=== PATIENT | female | born 1970 | race Caucasian/White ===

== ENCOUNTER 2023-11-08 18:24 | Observation (INO) ==
[2023-11-08] MEDS ORDERED: IOPAMIDOL 100 ML BOTTLE IV ONE (18:25)
[2023-11-08] MEDS: KETOROLAC 30 MG/ML VIAL IV ONE (20:08)
[2023-11-08] MEDS: DIAZEPAM 10 MG/2 ML SYRINGE IV ONE (20:08)
[2023-11-08] MEDS: 0.9 % SODIUM CHLORIDE 1,000 ML IV ONE (20:09)
[2023-11-08 20:35] LABS: ALT/SGPT 35 U/L (<40); AST/SGOT 109 U/L (<32); Albumin 4.1 gm/dL (3.2-5.2); Albumin/Globulin Ratio 1.4 (1.0-2.3); Alkaline Phosphatase 449 U/L (39-117); Bilirubin,Total 0.6 mg/dL (0.1-1.0); Blood Urea Nitrogen 22 mg/dL (6-20); Calcium 10.2 mg/dL (8.6-10.4); Carbon Dioxide 25 mmol/L (22-30); Chloride 103 mmol/L (96-108); Glomerular Filtration Rate 56; Glucose 116 mg/dL (70-105)
[2023-11-08 20:58] LABS: Basophils # (Auto) 0.07 K/mcL (0.00-0.30); Basophils % (Auto) 0.5 % (0.0-2.0); Eosinophils # (Auto) 0.29 K/mcL (0.00-0.70); Eosinophils % (Auto) 1.9 % (0.0-7.0); Hematocrit 27.5 % (34.1-44.9); Hemoglobin 8.8 g/dL (11.2-15.7); Lymphocytes # (Auto) 8.37 K/mcL (1.50-4.80); Lymphocytes % (Auto) 54.7 % (15.5-49.0); Mean Cell Volume 90.2 fL (80.0-100.0); Mean Platelet Volume 9.8 fL (8.8-12.5); Monocytes # (Auto) 0.82 K/mcL (0.10-0.90); Monocytes % (Auto) 5.4 % (1.0-12.0); Neutrophils % (Auto) 35.5 % (38.0-78.0); Platelet Count 53 K/mcL (140-440); RBC 3.05 M/mcL (3.59-5.38); Red Cell Distribution Width 20.9 % (11.5-14.5); WBC 15.3 K/mcL (4.5-11.0)
[2023-11-08] MEDS ORDERED: ONDANSETRON 4 MG/2 ML VIAL IV PRN (22:19)
[2023-11-08] MEDS: HYDROmorphone 0.5 MG/0.5 ML SYRINGE IV ONE (22:23)
[2023-11-08] MEDS ORDERED: GADOBENATE DIMEGLUMINE 20 ML/VIAL IV ONE (23:41)
[2023-11-09] MEDS: 0.9 % SODIUM CHLORIDE 1,000 ML IV SCH (00:16)
[2023-11-09] MEDS: HYDROmorphone 0.5 MG/0.5 ML SYRINGE IV PRN (04:25)
[2023-11-09 06:18] LABS: Basophils # (Auto) 0.05 K/mcL (0.00-0.30); Basophils % (Auto) 0.5 % (0.0-2.0); Eosinophils # (Auto) 0.19 K/mcL (0.00-0.70); Eosinophils % (Auto) 1.7 % (0.0-7.0); Hematocrit 23.6 % (34.1-44.9); Hemoglobin 7.5 g/dL (11.2-15.7); Lymphocytes # (Auto) 5.73 K/mcL (1.50-4.80); Lymphocytes % (Auto) 52.1 % (15.5-49.0); Mean Cell Volume 91.5 fL (80.0-100.0); Mean Corpuscular HGB Conc 31.8 g/dL (31.0-36.0); Mean Platelet Volume 10.7 fL (8.8-12.5); Monocytes # (Auto) 0.52 K/mcL (0.10-0.90); Monocytes % (Auto) 4.7 % (1.0-12.0); Platelet Count 38 K/mcL (140-440); RBC 2.58 M/mcL (3.59-5.38); Red Cell Distribution Width 21.1 % (11.5-14.5)
[2023-11-09 06:20] LABS: ALT/SGPT 24 U/L (<40); AST/SGOT 82 U/L (<32); Albumin 3.5 gm/dL (3.2-5.2); Albumin/Globulin Ratio 1.5 (1.0-2.3); Alkaline Phosphatase 363 U/L (39-117); Bilirubin,Direct < 0.2 mg/dL (0-0.3); Bilirubin,Total 0.5 mg/dL (0.1-1.0); Blood Urea Nitrogen 20 mg/dL (6-20); Calcium 9.4 mg/dL (8.6-10.4); Carbon Dioxide 22 mmol/L (22-30); Chloride 108 mmol/L (96-108); Globulin 2.4 gm/dL (2.2-3.7); Glomerular Filtration Rate 83; Glucose 85 mg/dL (70-105); Lactate Dehydrogenase 356 U/L (135-225); Phosphorous 4.6 mg/dL (2.5-4.5); Triglycerides 139 mg/dL (<150); Uric Acid 6.3 mg/dL (2.5-8.0)
== END 2023-11-09 13:53 | disposition home or self-care (01) ==
LOC: MEDSUR 18:24 → ED 18:24 → MEDSUR 23:36
PROVIDERS: ADMIT Family Medicine Adult Medicine; ATTEND Family Medicine Adult Medicine